=== PATIENT | female | born 1945 | race African-American/Black ===

== ENCOUNTER 2018-04-11 11:03 | Outpatient (CLI) | payer MEDICARE | END 2018-04-11 11:04 | disposition home or self-care (01) | LOC: BICMAMMO 11:03 | PROVIDERS: ATTEND Physician Assistant | DX: Z12.31 Encounter for screening mammogram for malignant neoplasm of breast (principal); Z80.3 Family history of malignant neoplasm of breast | CPT/HCPCS: 77063; 77067 ==

== ENCOUNTER 2019-01-23 08:16 | Outpatient (CLI) | payer MEDICARE ==
--- NOTE | 2019-01-23 09:03 | MMO ---
Right Breast MAMMO Unilat Diag DDI RT+LUIS. CLINICAL HISTORY: Patient is 73 years old and is seen for diagnostic exam. The patient has the following family history of breast cancer: sister. The patient has no personal history of cancer. VIEWS: The views performed were: right craniocaudal with tomosynthesis; right mediolateral oblique with tomosynthesis; and right mediolateral. FILMS COMPARED: The present examination has been compared to prior imaging studies performed at [facility] on 03/08/2016, and at [facility] on 04/10/2017 and 04/11/2018. MAMMOGRAM FINDINGS: There are scattered fibroglandular densities. Finding 1: There are stable benign appearing calcifications seen in the right breast. Finding 2: There are stable benign appearing densities seen in the right breast. There are no suspicious masses, suspicious calcifications, or new areas of architectural distortion. IMPRESSION: THERE IS NO MAMMOGRAPHIC EVIDENCE OF MALIGNANCY. A ROUTINE FOLLOW-UP MAMMOGRAM IN 1 YEAR IS RECOMMENDED. THE RESULTS OF THIS EXAM WERE SENT TO THE PATIENT. ACR BI-RADS Category 2 - Benign finding MAMMOGRAPHY NOTE: 1. A negative mammogram report should not delay a biopsy if a dominant of clinically suspicious mass is present. 2. Approximately 10% to 15% of breast cancers are not detected by mammography. 3. Adenosis and dense breasts may obscure an underlying neoplasm.
--- NOTE | 2019-01-23 09:23 | RAD ---
XR Chest Pa Lat STANDARD HISTORY: Shortness of breath COMPARISON: 03/08/2016 FINDINGS: The heart size is normal. The lungs are well expanded without focal areas of consolidation, pneumothorax or pleural effusions. The aorta is tortuous. There are degenerative changes in the spine. IMPRESSION: No radiographic evidence of acute cardiopulmonary process.
== END 2019-01-23 08:17 | disposition home or self-care (01) ==
LOC: BICMAMMO 08:16
PROVIDERS: ATTEND Physician Assistant
DX: N64.89 Other specified disorders of breast (principal); R06.02 Shortness of breath; Z80.3 Family history of malignant neoplasm of breast
CPT/HCPCS: 71046; 77065; G0279

== ENCOUNTER 2020-08-13 12:12 | Outpatient (CLI) | payer MEDICARE ==
--- NOTE | 2020-08-13 13:16 | MMO ---
Bilateral MAMMO Bilat Screen DDI+LUIS. CLINICAL HISTORY: Patient is 74 years old and is seen for screening. The patient has the following family history of breast cancer: sister, malignant (generic) and maternal aunt, malignant (generic), x3. The patient has no personal history of cancer. VIEWS: The views performed were: bilateral craniocaudal with tomosynthesis and bilateral mediolateral oblique with tomosynthesis. FILMS COMPARED: The present examination has been compared to prior imaging studies performed at [facility] on 03/08/2016, and at [facility] on 04/10/2017, 04/11/2018 and 01/23/2019. This study has been interpreted with the assistance of computer-aided detection. MAMMOGRAM FINDINGS: There are scattered fibroglandular densities. Finding 1: There are stable benign appearing calcifications seen in both breasts. Finding 2: There are stable benign appearing densities seen in both breasts. There are no suspicious masses, suspicious calcifications, or new areas of architectural distortion. IMPRESSION: THERE IS NO MAMMOGRAPHIC EVIDENCE OF MALIGNANCY. A ROUTINE FOLLOW-UP MAMMOGRAM IN 1 YEAR IS RECOMMENDED. THE RESULTS OF THIS EXAM WERE SENT TO THE PATIENT. ACR BI-RADS Category 2 - Benign finding MAMMOGRAPHY NOTE: 1. A negative mammogram report should not delay a biopsy if a dominant of clinically suspicious mass is present. 2. Approximately 10% to 15% of breast cancers are not detected by mammography. 3. Adenosis and dense breasts may obscure an underlying neoplasm. Reported by: FRED ROSALES MD Electonically Signed: [id number]
== END 2020-08-13 12:13 | disposition home or self-care (01) ==
LOC: BICMAMMO 12:12
PROVIDERS: ATTEND Physician Assistant
DX: Z12.31 Encounter for screening mammogram for malignant neoplasm of breast (principal); Z80.3 Family history of malignant neoplasm of breast
CPT/HCPCS: 77063; 77067

== ENCOUNTER 2020-08-20 15:18 | Outpatient (CLI) | payer MEDICARE ==
--- NOTE | 2020-08-20 16:00 | ULT ---
ULTRASOUND RENAL BILATERAL STANDARD: 08/20/20 HISTORY: Chronic kidney disease. COMPARISON: None. FINDINGS: Real time crouch scale and color evaluation of the kidneys and urinary bladder is performed. The right kidney measures 7.2 x 3.6 x 3.3 cm without mass, hydronephrosis or abnormal calcifications. The left kidney measures 8.6 x 4.2 x 4.1 cm without mass, hydronephrosis or abnormal calcifications. The corti comedullary differentiation is poor. The urinary bladder volume is increased at 415 mL. Patient was u nable to void. IMPRESSION: 1. Small bilateral kidneys with poor corticomedullary differentiation suggesting chronic medial renal disease. 2. No evidence for obstructive uropathy or mass. 3. Marked distention of the urinary bladder with a volume of 415 mL. patient was unable to void during the exam. POS: [facility]
== END 2020-08-20 15:19 | disposition home or self-care (01) ==
LOC: BICULT 15:18
PROVIDERS: ATTEND Internal Medicine Nephrology
DX: N18.30 Chronic kidney disease, stage 3 unspecified (principal); N32.89 Other specified disorders of bladder
CPT/HCPCS: 76770

== ENCOUNTER 2020-11-04 13:24 | Outpatient (CLI) | payer MEDICARE | END 2020-11-04 13:25 | disposition home or self-care (01) | LOC: BICRAD 13:24 | PROVIDERS: ATTEND Internal Medicine Pulmonary Disease | DX: R06.00 Dyspnea, unspecified (principal) | CPT/HCPCS: 71046 ==

== ENCOUNTER 2022-04-15 12:11 | Outpatient (CLI) | payer OTHER | END 2022-04-15 12:12 | disposition home or self-care (01) | LOC: BICMAMMO 12:11 | PROVIDERS: ATTEND Physician Assistant | DX: Z12.31 Encounter for screening mammogram for malignant neoplasm of breast (principal); Z80.3 Family history of malignant neoplasm of breast | CPT/HCPCS: 77063; 77067 ==

== ENCOUNTER 2023-11-15 10:22 | Outpatient (CLI) | payer OTHER | END 2023-11-15 10:23 | disposition home or self-care (01) | LOC: RAD 10:22 | PROVIDERS: ATTEND Internal Medicine | DX: R06.00 Dyspnea, unspecified (principal); K59.00 Constipation, unspecified | CPT/HCPCS: 71046; 74018 ==